=== PATIENT | female | born 1945 | race Caucasian/White ===

== ENCOUNTER 2019-01-14 02:05 | Emergency (ER) | payer OTHER, BC ==
[~2019-01-14] VITALS: Ht 167.6 cm; Wt 74.8 kg
[~2019-01-14 02:05] MED LIST: ATEN25TA2 GT; FERR325E14 GT; TYL3 GT; [UNRECOGNIZED DRUG - CODE] GT; [UNRECOGNIZED DRUG - CODE] GT; [UNRECOGNIZED DRUG - CODE] SUBQ; [UNRECOGNIZED DRUG - OTHER] GT; [UNRECOGNIZED DRUG - OTHER] GT
[2019-01-14 02:14] VITALS: BP 142/68
--- NOTE | 2019-01-14 02:14 | NUR ---
PT TO BED #10 BY SHREYAS SOL
--- NOTE | 2019-01-14 02:15 | NUR ---
74 Y/O F BIB AMBULANCE FROM [facility] S/P FALL.PATIENT PRESENTS TO ED WITH L EYEBROW HEMATOMA AND LAC TO ALIVIA, NO BLEEDING AT THIS. NO LOC. L ELBOW ABRASION. PT BASELINE IS NON-VERBAL D/T HX OF CVA. DENIES N/V/D; SKIN IS PINK/WARM/DRY; LUNGS CLEAR BL; HR EVEN AND REGULAR; VSS; PATIENT POSITIONED FOR COMFORT; HOB ELEVATED; BEDRAILS UP X2; BED DOWN. ER MD MADE AWARE OF PT STATUS.
--- NOTE | 2019-01-14 03:15 | NUR ---
PT WENT TO CT BY SHREYAS
--- NOTE | 2019-01-14 03:41 | NUR ---
PT IS BACK FROM CT. TRANSPORTED BY SHREYAS
--- NOTE | 2019-01-14 05:10 | NUR ---
REPORT GIVEN TO ANTWON DORSEY AT [facility]. [facility] TO TRANSPORT PT. ETA 60 MINS.
[2019-01-14 05:46] VITALS: BP 97/46
--- NOTE | 2019-01-14 05:47 | NUR ---
Patient discharged with v/s stable. Written and verbal after care instructions given and explained. Patient non-verbal. Report given to [facility]. Ambulance Transport with to long term. All questions addressed prior to discharge. Advised to follow up with PMD.
== END 2019-01-14 05:47 ==
LOC: MED 02:05
DX: S00.12XA Contusion of left eyelid and periocular area, initial encounter (principal); S40.812A Abrasion of left upper arm, initial encounter; E11.9 Type 2 diabetes mellitus without complications; I10 Essential (primary) hypertension; F03.90 Unspecified dementia, unspecified severity, without behavioral disturbance, psychotic disturbance, mood disturbance, and anxiety; Z79.899 Other long term (current) drug therapy; W19.XXXA Unspecified fall, initial encounter; Y93.89 Activity, other specified; Y92.89 Other specified places as the place of occurrence of the external cause; Y99.8 Other external cause status
CPT/HCPCS: 70450; 70486; 72125; 73060; 99284

== ENCOUNTER 2019-06-20 14:09 | Inpatient (IN) | payer OTHER, BC ==
[~2019-06-20] VITALS: Ht 172.7 cm; Wt 78.9 kg
[2019-06-20 14:09] VITALS: BP 177/87
[2019-06-20] MEDS ORDERED: PIPERACILLIN/TAZOBACTAM 3.375 GM in DEXTROSE 5% 50 ML IV ONE (14:25)
--- NOTE | 2019-06-20 14:42 | NUR ---
LAB AT BEDSIDE
--- NOTE | 2019-06-20 15:00 | NUR ---
Inserted 14 namibian Lindquist catheter with 200ml output.
[2019-06-20] MEDS ORDERED: PIPERACILLIN/TAZOBACTAM 3.375 GM VIAL IV ONE (15:02)
--- NOTE | 2019-06-20 15:10 | NUR ---
Note undnick in EDM - 06/20/19 at 1529 by RAEANN 74 y/o female bib ems for g-tube leak evaluation. Pt. is nonverbal and a/o x 1. 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 Skin is dry with red hyperpigmentation on left buttocks. Pmh: DM, Dementia, Gerd, dysphagia, Htn, hemiplegia, and hyperlipidemia. Allergies: NKDA
--- NOTE | 2019-06-20 15:10 | NUR ---
XRAY AT BEDSIDE
[2019-06-20 15:18] LABS: BASOPHILS # (AUTO) 0.1 K/uL (0.00-0.22); BASOPHILS % (AUTO) 0.7 % (0.0-2.0); EOSINOPHILS # (AUTO) 0.1 K/uL (0-0.4); EOSINOPHILS % (AUTO) 1.2 % (0.0-4.0); HEMATOCRIT 43.2 % (36-48); HEMOGLOBIN 14.8 g/dL (12.0-16.0); LYMPHOCYTES # (AUTO) 2.1 K/uL (2.5-16.5); LYMPHOCYTES % (AUTO) 24.4 % (20.5-51.1); MEAN CORPUSCULAR HEMOGLOBIN 32 pg (27-31); MEAN CORPUSCULAR HGB CONC 34 g/dL (33-37); MEAN CORPUSCULAR VOLUME 93.2 fL (80-94); MONOCYTES # (AUTO) 0.6 K/uL (0.8-1.0); NEUTROPHILS # (AUTO) 5.6 K/uL (1.8-7.7); NEUTROPHILS % (AUTO) 66.7 % (42.2-75.2); PLATELET COUNT (AUTO) 257 K/uL (140-450); RED BLOOD CELL COUNT(AUTO) 4.63 MIL/uL (4.20-5.40); RED CELL DISTRIBUTION WIDTH 13.7 % (11.6-13.7); WHITE BLOOD COUNT (AUTO) 8.4 K/uL (4.8-10.8)
[2019-06-20 15:21] LABS: BILIRUBIN,URINE NEGATIVE (NEGATIVE); BLOOD, URINE 2+ (NEGATIVE); COLOR,URINE YELLOW (YELLOW); LEUKOCYTE ESTERASE ,URINE 3+ (NEGATIVE); NITRITE, URINE NEGATIVE (NEGATIVE); UGLUCOSE NEGATIVE (NEGATIVE)
[2019-06-20 15:24] LABS: APPEARANCE,URINE CLOUDY (CLEAR)
[2019-06-20] MEDS ORDERED: NACL 0.9% 1,000 ML IV ONE ×2 (15:25)
--- NOTE | 2019-06-20 15:29 | NUR ---
74 y/o female bib ems for g-tube leak evaluation. Pt. is nonverbal and a/o x 1. 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 Skin is dry with red hyperpigmentation on left buttocks. Pt. is incontinent of urine. Pmh: DM, Dementia, Gerd, dysphagia, Htn, hemiplegia, and hyperlipidemia. Allergies: NKDA
[2019-06-20 15:54] LABS: ANION GAP 10.3 (8-16); CHLORIDE 100 mmol/L (98-107); CREATININE 0.5 mg/dL (0.6-1.3); GLUCOSE 111 mg/dL (74-106); POTASSIUM 4.3 mmol/L (3.5-5.1); SODIUM SERUM 136 mmol/L (136-145); UREA NITROGEN, BLOOD 16 mg/dL (7-18)
[2019-06-20 15:55] LABS: RBC,URINE 50-80 /HPF (0-5); WBC,URINE 0-5 /HPF (0-5)
[2019-06-20 16:01] LABS: ALBUMIN 3.3 g/dL (3.4-5.0); ASPARTATE AMINOTRANSFERASE 17 U/L (15-37); LIPASE 118 U/L (73-393); TOTAL BILIRUBIN 0.6 mg/dL (0.0-1.0)
[2019-06-20 16:13] LABS: PROTHROMBIN TIME 9.3 secs (10.8-13.4)
[2019-06-20 16:31] LABS: CREATINE KINASE MB 1.9 ng/mL (0-3.6)
[2019-06-20] MEDS ORDERED: ACETAMINOPHEN 650 MG SUPP RC ONE (17:00)
[2019-06-20] MEDS ORDERED: DOCU250S72 GT ×2 (17:02→21:25)
[2019-06-20] MEDS ORDERED: NUTR-396 GT ×2 (17:02→21:25)
[2019-06-20] MEDS ORDERED: FAMO-90 PO (17:02)
[2019-06-20] MEDS ORDERED: ACET-2619 GT ×2 (17:02→21:22)
[2019-06-20] MEDS ORDERED: ASCO500T45 GT ×2 (17:02→21:22)
[2019-06-20] MEDS ORDERED: METO25TA GT ×3 (17:02→21:25)
[2019-06-20] MEDS ORDERED: LACT500C2 GT ×2 (17:02→21:25)
[2019-06-20] MEDS ORDERED: CRAN450C GT ×2 (17:02→21:25)
[2019-06-20] MEDS ORDERED: [UNRECOGNIZED DRUG - CODE] GT ×2 (17:02→21:25)
[2019-06-20] MEDS ORDERED: LACT10SO11 GT ×2 (17:02→21:25)
[2019-06-20] MEDS ORDERED: NACL 0.9% 500 ML IV ONE (17:30)
--- NOTE | 2019-06-20 17:30 | NUR ---
SPOKE WITH KAIN KAPOOR AT [facility] AND OBTAINED MORE INFORMATION ABOUT PATIENT'S HEART RATE. PER FACILITY, PATIENT THIS MORNING HAD A NORMAL VITAL OF HEART RATE 72. DR. RAO MADE AWARE.
[2019-06-20] MEDS ORDERED: MORPHINE SULFATE 2 MG/ML SYR IVP PRN (17:35)
[2019-06-20] MEDS ORDERED: ACETAMINOPHEN 325 MG TAB PO PRN (17:35)
[2019-06-20] MEDS ORDERED: DOCUSATE SODIUM 100 MG GELCAP PO PRN (17:35)
[2019-06-20] MEDS ORDERED: HYDROcodone/APAP 5/325 MG 1 TAB TAB PO PRN (17:35)
[2019-06-20] MEDS ORDERED: ZOLPIDEM 5 MG TAB PO PRN (17:35)
[2019-06-20] MEDS ORDERED: ONDANSETRON 4 MG/2 ML VIAL IM/IVP PRN (17:35)
[2019-06-20] MEDS ORDERED: LORazepam 2 MG/ML VIAL IM/IVP PRN (17:35)
--- NOTE | 2019-06-20 17:45 | NUR ---
SPOKE WITH KAIN KAPOOR AT [facility] AND I ADVISED HER THAT PATIENT WOULD BE ADMITTED TO HOSPITAL OVERNIGHT.
--- NOTE | 2019-06-20 17:55 | NUR ---
Contrast injected into g-tube for placement by myself. X-Ray at bedside.
[2019-06-20] MEDS ORDERED: DOCUSATE SODIUM 100 MG GELCAP PO SCH (17:56)
[2019-06-20] MEDS ORDERED: LACTOBACILLUS RHAMNOSUS GG 1 EACH CAP PO SCH (17:58)
[2019-06-20 18:20] LABS: MAGNESIUM 2.3 mg/dL (1.8-2.4); PHOSPHORUS 3.3 mg/dL (2.5-4.9); THYROID STIMULATING HORMONE 2.27 uIU/mL (0.34-3.74)
[2019-06-20 18:32] VITALS: BP 153/81
--- NOTE | 2019-06-20 18:32 | NUR ---
RECEIVED REPORT FROM ED NURSE. PT IS AOX1, NONVERBAL. RESPIRATIONS EVEN AND UNLABORED ON RA. PT HAS GTUBE IN PLACE, NO RESIDUALS AT THIS TIME. F/C IN PLACE DRAINING YELLOW URINE, DX UTI. 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 SKIN IS WARM TO TOUCH. FOOT DROP NOTED. IV ON LT HAND 20 GA ON SALINE LOCK, FLUSHING WITH NO RESISTANCE, DRESSING CLEAN, DRY AND INTACT. EXPLAINED POC WITH PT, PT UNABLE TO COMPREHEND, WILL NEED REINFORCEMENT.
--- NOTE | 2019-06-20 18:40 | NUR ---
Maryann sosa in ED - 06/20/19 at 1841 by RAEANN Patient will be admitted to care of DR. TOLEDO. Admited to TELE. Will go to room 121 B. Belongings list completed. Report to .
--- NOTE | 2019-06-20 18:41 | NUR ---
Patient will be admitted to care of DR. TOLEDO. Admited to TELE. Will go to room 121 b. Belongings list completed. Report to SOL KAPOOR .
--- NOTE | 2019-06-20 19:10 | NUR ---
ENDORSED PT TO MANAGER PET NURSE. PT HAS NO SIGNS OF DISTRESS AT THIS TIME.
--- NOTE | 2019-06-20 19:11 | NUR ---
RECEIVED REPORT FROM AM NURSE. PT AWAKE, ALERT AND ORIENTED TO NAME ONLY. PT IS NON-VERBAL. VISIBLE CHEST RISE AND FALL ON ROOM AIR, NO DISTRESS NOTED. PT UNABLE TO FOLLOW COMMANDS. HANDS ARE CONTRACTED AND BILATERAL FOOT DROP NOTED. NOTED INCONTINENT DERMATITIS IN PERINEAL AREA. ANSARI IN PLACE. LEFT HAND 20G INTACT AND PATENT WITH SALINE FLUSH. ON FALL PRECAUTIONS, BED ALARM ON. CALL LIGHT WITHIN REACH. WILL MONITOR WITH FREQUENT ROUNDS.
[2019-06-20 20:00] VITALS: BP 164/68
--- NOTE | 2019-06-20 20:00 | NUR ---
INFORMED RESIDENT DR. GONZALEZ OF PT VITAL SIGNS. PER MD, CONTINUE HOME MEDS AND CONTINUE TO MONITOR.
[2019-06-20] MEDS ORDERED: ACETAMINOPHEN 325 MG TAB GT PRN ×2 (20:45→21:25)
[2019-06-20] MEDS ORDERED: FAMO-90 GT ×2 (20:47→21:25)
[2019-06-20] MEDS ORDERED: DOCUSATE 100 MG/10 ML UDC GT SCH (20:50)
[2019-06-20] MEDS ORDERED: METOPROLOL 25 MG TAB GT SCH (21:00)
[2019-06-20] MEDS ORDERED: FAMOTIDINE 20 MG TAB GT SCH (21:00)
[2019-06-20] MEDS ORDERED: SODIUM PHOSPHATE 118 ML ENEM RC ONE ×2 (21:05→21:30)
--- NOTE | 2019-06-20 21:06 | NUR ---
FLEET ENEMA ADMINISTERED. PT TOLERATED WELL.
[2019-06-20] MEDS ORDERED: MEDICATION REC. PHARMACY CONS. 1 EA MISC MC PRN (21:15)
[2019-06-20] MEDS ORDERED: GLUCAGON 1 MG VIAL IVP PRN (21:40)
[2019-06-20] MEDS ORDERED: INSULIN LISPRO SLIDING SCALE 100 UNITS/ML VIAL SUBQ PRN (21:40)
[2019-06-20] MEDS ORDERED: DEXTROSE 50% 50 ML SYR IVP PRN (21:40)
[2019-06-20] MEDS: NACL 0.9% 1,000 ML IV SCH (22:06)
[2019-06-20] MEDS: PIPERACILLIN/TAZOBACTAM 3.375 GM in DEXTROSE 5% 50 ML IV SCH (22:06)
[2019-06-20] MEDS: METOPROLOL 25 MG TAB GT SCH (22:07)
--- NOTE | 2019-06-20 22:07 | NUR ---
MEDICATION ADMINISTERED VIA G-TUBE. G-TUBE PATENT W/O ISSUES.
[2019-06-20] MEDS: DOCUSATE 100 MG/10 ML UDC GT SCH (22:59)
--- NOTE | 2019-06-21 00:15 | NUR ---
VITALS TAKEN. PT HAD SMALL BM. PT CLEANED AND REPOSITIONED FOR COMFORT. WOUND CARE PERFORMED FOR INCONTINENT DERMATITIS.
[2019-06-21 00:30] VITALS: BP 115/59
[2019-06-21] MEDS: HYDRAGUARD CREAM TP SCH ×2 (01:00→12:30)
--- NOTE | 2019-06-21 02:30 | NUR ---
ROUNDED ON PT. PT RESTING IN BED WITH EYES CLOSE. BREATHING EQUAL AND UNLABORED ON ROOM AIR. NO VISIBLE SIGNS OF DISTRESS. WILL CONTINUE TO MONITOR.
[2019-06-21] MEDS: NACL 0.9% 1,000 ML IV SCH ×2 (03:38→12:34)
[2019-06-21 04:00] VITALS: BP 146/65
--- NOTE | 2019-06-21 04:00 | NUR ---
VITALS TAKEN. PT HAD ANOTHER SMALL BOWEL MOVEMENT. PT CLEANED AND REPOSITIONED FOR COMFORT.
[2019-06-21] MEDS: PIPERACILLIN/TAZOBACTAM 3.375 GM in DEXTROSE 5% 50 ML IV SCH ×3 (04:24→21:40)
--- NOTE | 2019-06-21 06:00 | NUR ---
TUBE FEEDING STARTED JEVITY 1.2 AT 10ML/HR. PT TOLERATED WELL. PT RESTING WITH EYES CLOSED BUT IS AWAKEN BY VOICE. VISIBLE CHEST RISE AND FALL ON ROOM AIR. NO DISTRESS NOTED. PT IN STABLE CONDITION. WILL ENDORSE TO AM NURSE.
[2019-06-21 06:31] LABS: ANION GAP 11.1 (8-16); CARBON DIOXIDE 26.7 mmol/L (21-32); CHLORIDE 108 mmol/L (98-107); CREATININE 0.5 mg/dL (0.6-1.3); GLUCOSE 111 mg/dL (74-106); POTASSIUM 3.8 mmol/L (3.5-5.1); SODIUM SERUM 142 mmol/L (136-145); UREA NITROGEN, BLOOD 12 mg/dL (7-18)
[2019-06-21 06:39] LABS: CHOL/HDL RATIO 3.2 (1-4.5); PHOSPHORUS 2.7 mg/dL (2.5-4.9)
[2019-06-21] MEDS: BLOOD GLUCOSE MONITORING 1 DEV DEV FS SCH ×4 (06:51→21:35)
[2019-06-21 06:54] LABS: BASOPHILS % (AUTO) 0.4 % (0.0-2.0); EOSINOPHILS % (AUTO) 0.4 % (0.0-4.0); HEMATOCRIT 39.1 % (36-48); HEMOGLOBIN 13.1 g/dL (12.0-16.0); LYMPHOCYTES % (AUTO) 14.9 % (20.5-51.1); MEAN CORPUSCULAR HEMOGLOBIN 32 pg (27-31); MEAN CORPUSCULAR HGB CONC 34 g/dL (33-37); MEAN CORPUSCULAR VOLUME 94.9 fL (80-94); MONOCYTES # (AUTO) 0.6 K/uL (0.8-1.0); MONOCYTES % (AUTO) 8.4 % (1.7-9.3); NEUTROPHILS # (AUTO) 5.2 K/uL (1.8-7.7); NEUTROPHILS % (AUTO) 75.9 % (42.2-75.2); PLATELET COUNT (AUTO) 202 K/uL (140-450); RED BLOOD CELL COUNT(AUTO) 4.12 MIL/uL (4.20-5.40); RED CELL DISTRIBUTION WIDTH 13.7 % (11.6-13.7); WHITE BLOOD COUNT (AUTO) 6.8 K/uL (4.8-10.8)
--- NOTE | 2019-06-21 07:16 | NUR ---
RECEIVED REPORT FROM ROBBY RN. PT RESTING IN BED. AAOX4. NO S/S OF ACUTE DISTRESS. FLACC-0. IV SITE PATENT AND INTACT. ANSARI CATHETER PATENT. GTUBE PATENT. CALL LIGHT WITHIN REACH. SAFETY MEASURES ENSURED. WILL CONTINUE TO MONITOR.
[2019-06-21 08:00] VITALS: BP 127/63
--- NOTE | 2019-06-21 08:35 | NUR ---
PATIENT HAS BEEN SCREENED AND CATEGORIZED HIGH NUTRITION RISK. PATIENT WILL BE SEEN WITHIN 1-2 DAYS OF ADMISSION. 06/21/19-06/22/[address]
[2019-06-21] MEDS ORDERED: NON-FORMULARY ITEM (Cranberry Fruit Concentrate (Cranberry) 450 MG) GT SCH ×2 (09:00)
[2019-06-21] MEDS ORDERED: FIBER GT SCH (09:00)
[2019-06-21] MEDS ORDERED: [UNRECOGNIZED DRUG - OTHER] GT SCH (09:00)
[2019-06-21] MEDS ORDERED: NON-FORMULARY ITEM (Multivit with Min #53/FA/K/Q10 (Dekas Plus Softgel) 1 EACH) GT SCH (09:00)
[2019-06-21] MEDS ORDERED: LACTULOSE 20 GM/30 ML UDC GT SCH (09:00)
[2019-06-21] MEDS ORDERED: LACTOBACILLUS RHAMNOSUS GG 1 EACH CAP PO SCH ×2 (09:00)
[2019-06-21] MEDS ORDERED: LACTOSE REDUCED FOOD GT SCH (09:00)
[2019-06-21] MEDS ORDERED: ASCORBIC ACID 500 MG TAB GT SCH (09:00)
[2019-06-21] MEDS: METOPROLOL 25 MG TAB GT SCH ×2 (09:35→21:38)
[2019-06-21] MEDS: CALCIUM POLYCARBOPHIL 625 MG TAB GT SCH (09:36)
[2019-06-21] MEDS: ASCORBIC ACID 500 MG TAB GT SCH (09:36)
[2019-06-21] MEDS: FAMOTIDINE 20 MG TAB GT SCH ×2 (09:36→21:38)
[2019-06-21] MEDS: LACTULOSE 20 GM/30 ML UDC GT SCH (09:36)
[2019-06-21] MEDS: LACTOBACILLUS RHAMNOSUS GG 1 EACH CAP GT SCH ×2 (09:36→21:38)
[2019-06-21] MEDS: DOCUSATE 100 MG/10 ML UDC GT SCH ×2 (09:36→21:37)
[2019-06-21] MEDS: MULTIVITAMIN/MINERALS 15 ML UDBTL GT SCH (09:37)
--- NOTE | 2019-06-21 10:00 | NUR ---
PT RESTING IN BED. NO S/S OF ACUTE DISTRESS. FLACC-0. 0 RESIDUAL FROM GTUBE. FEEDING INCREASED TO 20 ML/HR ORDERED. WILL CONTINUE TO MONITOR.
[2019-06-21 11:11] VITALS: BP 108/56
--- NOTE | 2019-06-21 11:25 | NUR ---
Claim Service Representative Note: Per Ivelisse from [facility] , they can accept patient upon discharge. 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 Claim Service Representative and/or Engine Repairer will follow up as needed.
[2019-06-21 12:07] LABS: T4 (THYROXINE) 10.6 ug/dL (4.5-12.0)
--- NOTE | 2019-06-21 13:23 | NUR ---
06/21/19 RD INITIAL ASSESSMENT COMPLETED PLEASE REFER TO NUTRITION ASSESSMENT UNDER CARE ACTIVITY FOR ESTIMATED NUTRITIONAL NEEDS. 1. RECOMMEND PROSOURCE ONCE DAILY 2. CONTINUE JEVITY @ 65 ML/HR x 24 HR -THIS WILL PROVIDE 1560 ML OF VOLUME, 1872 KCAL, 86 GM OF PROTEIN WHICH MEETS 100% OF ESTIMATED NEEDS 3. RD TO FOLLOW-UP 2-3 DAYS, HIGH RISK EZIO BULLOCK, RD
--- NOTE | 2019-06-21 14:00 | NUR ---
INCREASED FEEDING TO 30ML/HR. PT TOLERATED WELL.
[2019-06-21 16:00] VITALS: BP 110/63
--- NOTE | 2019-06-21 19:04 | NUR ---
LAB CALLED TO REPORT SPUTUM WAS REJECTED FOR CULTURE.
--- NOTE | 2019-06-21 19:05 | NUR ---
RECEIVED REPORT FROM AM NURSE. PT LAYING AWAKE IN BED, NON-VERBAL. PT DOES NOT FOLLOW COMMANDS. VISIBLE CHEST RISE AND FALL ON ROOM AIR, NO DISTRESS NOTED, FLACC 0. LEFT HAND 20G INTACT AND INFUSING WELL. ON FALL PRECAUTIONS, BED IN LOW POSITION, BED ALARM ON. WILL CONTINUE TO MONITOR.
[2019-06-21 20:00] VITALS: BP 150/61
--- NOTE | 2019-06-21 20:45 | NUR ---
G-TUBE RESIDUALS CHECKED, 5ML. INCREASED TUBE FEEDING BY 10ML/HR FOR A TOTAL OF 40ML/HR.
--- NOTE | 2019-06-21 21:35 | NUR ---
BLOOD GLUCOSE 72 AT THIS TIME, NO COVERAGE NEEDED. CHECKED G-TUBE RESIDUALS, 0ML. ADMINISTERED MEDICATION VIA G-TUBE. PT TOLERATED WELL.
[2019-06-22 00:20] VITALS: BP 122/49
--- NOTE | 2019-06-22 00:20 | NUR ---
VITALS TAKEN. PT SLEEPING, BREATHING EQUAL AND UNLABORED ON ROOM AIR. CHECKED G-TUBE RESIDUALS, 20CC NOTED. INCREASED G-TUBE FEEDING 10ML/H FOR A TOTAL OF 50ML/HR.
[2019-06-22] MEDS: HYDRAGUARD CREAM TP SCH ×2 (01:00→13:12)
[2019-06-22] MEDS: NACL 0.9% 1,000 ML IV SCH ×2 (03:34→17:17)
[2019-06-22 04:00] VITALS: BP 121/58
--- NOTE | 2019-06-22 04:00 | NUR ---
VITALS TAKEN. PT SLEEPING BUT OPENS EYES UPON TOUCH. BREATHING EQUAL AND UNLABORED. NO VISIBLE SIGNS OF DISTRESS.
[2019-06-22] MEDS: PIPERACILLIN/TAZOBACTAM 3.375 GM in DEXTROSE 5% 50 ML IV SCH ×3 (05:16→21:18)
--- NOTE | 2019-06-22 05:56 | NUR ---
CHECKED RESIDUALS, 0CC NOTED. CHANGED TUBE FEEDING, JEVITY 1.2, AND TUBING FOR FEEDING. ADMINISTERED ONE PACKET OF PROSOURCE VIA G-TUBE. PT TOLERATED WELL. RESTARTED TUBE FEEDING.
[2019-06-22 06:25] LABS: BASOPHILS % (AUTO) 0.7 % (0.0-2.0); EOSINOPHILS # (AUTO) 0.1 K/uL (0-0.4); EOSINOPHILS % (AUTO) 2.3 % (0.0-4.0); HEMATOCRIT 35.7 % (36-48); HEMOGLOBIN 11.9 g/dL (12.0-16.0); LYMPHOCYTES # (AUTO) 1.3 K/uL (2.5-16.5); LYMPHOCYTES % (AUTO) 27.1 % (20.5-51.1); MEAN CORPUSCULAR HEMOGLOBIN 32 pg (27-31); MEAN CORPUSCULAR HGB CONC 33 g/dL (33-37); MEAN CORPUSCULAR VOLUME 95.1 fL (80-94); MONOCYTES # (AUTO) 0.5 K/uL (0.8-1.0); MONOCYTES % (AUTO) 10.8 % (1.7-9.3); NEUTROPHILS # (AUTO) 2.9 K/uL (1.8-7.7); NEUTROPHILS % (AUTO) 59.1 % (42.2-75.2); PLATELET COUNT (AUTO) 165 K/uL (140-450); RED BLOOD CELL COUNT(AUTO) 3.75 MIL/uL (4.20-5.40); RED CELL DISTRIBUTION WIDTH 13.9 % (11.6-13.7)
[2019-06-22] MEDS: BLOOD GLUCOSE MONITORING 1 DEV DEV FS SCH ×4 (06:32→21:16)
[2019-06-22 06:34] LABS: ANION GAP 9.9 (8-16); CARBON DIOXIDE 26.6 mmol/L (21-32); CHLORIDE 108 mmol/L (98-107); CREATININE 0.4 mg/dL (0.6-1.3); GLUCOSE 121 mg/dL (74-106); POTASSIUM 3.5 mmol/L (3.5-5.1); SODIUM SERUM 141 mmol/L (136-145); UREA NITROGEN, BLOOD 9 mg/dL (7-18)
[2019-06-22 06:39] LABS: PHOSPHORUS 2.4 mg/dL (2.5-4.9)
--- NOTE | 2019-06-22 06:45 | NUR ---
IV D/C DUE TO OCCLUSION. NEW IV STARTED IN RIGHT HAND 24G.
--- NOTE | 2019-06-22 07:25 | NUR ---
RECEIVED REPORT FROM STEAM FITTER NURSE. PATIENT LYING DOWN IN BED SLEEPING, AROUSABLE BY VOICE. NO DISTRESS NOTED. FLACC 0. AAOX1, NON-VERBAL, CALM, COOPERATIVE, SKIN COLOR APPROPRIATE TO ETHNICITY, WARM TO TOUCH. SKIN INTACT, HAS REDNESS ON PERINEAL AREA D/T IAD. IV SITE INTACT, PATENT, AND INFUSING IVF PER MD ORDERS. LUNGS CTA ON ALL LOBES. ANSARI CATHETER IN PLACE, DRAINING CLOUDY YELLOW URINE. GTUBE IN PLACE, CONTINUOUS FEEDING RUNNING PER MD ORDERS. REVIEWED PLAN OF CARE WITH PATIENT. PATIENT VERBALIZED UNDERSTANDING. SAFETY MEASURES IN PLACE, CALL LIGHT WITHIN REACH. WILL CONTINUE TO MONITOR.
[2019-06-22 08:00] VITALS: BP 145/66
--- NOTE | 2019-06-22 09:00 | NUR ---
ASSISTED LEGAL RECRUITER IN CLEANING AND REPOSITIONING PATIENT. WILL CONTINUE TO MONITOR.
[2019-06-22] MEDS: DOCUSATE 100 MG/10 ML UDC GT SCH ×2 (10:02→21:17)
[2019-06-22] MEDS: LACTULOSE 20 GM/30 ML UDC GT SCH (10:02)
[2019-06-22] MEDS: ASCORBIC ACID 500 MG TAB GT SCH (10:08)
[2019-06-22] MEDS: METOPROLOL 25 MG TAB GT SCH ×2 (10:08→21:18)
[2019-06-22] MEDS: CALCIUM POLYCARBOPHIL 625 MG TAB GT SCH (10:09)
[2019-06-22] MEDS: FAMOTIDINE 20 MG TAB GT SCH ×2 (10:09→21:17)
[2019-06-22] MEDS: MULTIVITAMIN/MINERALS 15 ML UDBTL GT SCH (10:09)
--- NOTE | 2019-06-22 10:28 | NUR ---
PATIENT LYING DOWN IN BED. NO DISTRESS NOTED. FLACC 0. SCHEDULED MEDICATIONS DUE GIVEN. PATIENT TOLERATED WELL. WILL CONTINUE TO MONITOR.
[2019-06-22 12:00] VITALS: BP 121/68
[2019-06-22] MEDS ORDERED: SODIUM PHOS / POTASSIUM PHOS 1 PKT PDR PO SCH (12:00)
--- NOTE | 2019-06-22 13:02 | NUR ---
WOUND CARE EVALUATION NOTES: REASON FOR EVALUATION: BUTTOCK AND SACRALCOCCYX WOUND SKIN ASSESSMENT DONE WITH PRIMARY RN ON THIS 74 Y/O FEMALE PT ADMITTED FROM [facility] TO [facility] WITH INITIAL DX OF SEPSIS. PAST MEDICAL HX INCLUDES HTN, DM, AND DEMENTIA. ALL ABOVE INFORMATION OBTAINED FROM ADMISSION H&P. PT IS AWAKE. SKIN IS WARM AND MOIST, FACIAL PIMPLES TO CHIN AND NECK AREA, SKIN RASHES/ PSORIASIS TO TRUNK OF BODY. BLE NO HAIR GROWTH, BILATERAL DORSAL PEDAL PULSES PRESENT AND NORMAL. BUE CONTRACTURE, FOOT DROP AND STIFFNESS TO BLE OBSERVED. PLAN OF CARE DISCUSSED WITH PRIMARY RN AND PT. PT. VERBALIZING UNDERSTANDING INTEGUMENTARY: -LEFT BUTTOCK AND SACRALCOCCYX SKIN INTACT WITH THIN HEALED SCARS, NON BLANCHABLE. -INCONTINENT ASSOCIATE DERMATITIS TO B/L GROINS, PERINEUM AND B/L BUTTOCKS SKIN REDNESS -GT SITE LUC-STOMA SKIN DRY AND INTACT -BLE DRY SCALY SKIN, RIGHT LOWER LEDBETTER 2X2CM DRY HEALING SCAR WITH PERIWOUND SKIN REDNESS AND INTACT -LEFT / RIGHT HEELS THICK CALLUS RECOMMENDATIONS: -CLEANSE B/L GROINS, PERINEUM AND B/L BUTTOCKS WITH SOAP AND WATER, PAT DRY, APPLY THIN LAYER OF HYDRAGUARD BID AND HERB -APPLY OPTICFOAM TO SACRALCOCCYX AND LEFT BUTTOCK QD AND PRN PREVENTION -KEEP DRY AND CLEAN AT ALL TIMES -OFFLOAD BILATERAL HEELS BY PLACING PILLOWS UNDER CALVES UNLESS OTHERWISE CONTRAINDICATED -PRESSURE REDISTRIBUTION SURFACE THERAPY -TURN AND REPOSITION Q2H, OFFLOAD SACRALCOCCYX BY TURNING RIGHT AND LEFT -CONTINUE TO FOLLOW RD RECOMMENDATIONS ALL ABOVE RECOMMENDATIONS DISCUSSED WITH PRIMARY RN PLEASE CONTACT WOUND CARE NURSE FOR ANY QUESTIONS AND CHANGES IN SKIN CONDITION.
[2019-06-22] MEDS: SODIUM PHOS / POTASSIUM PHOS 1 PKT PDR PO SCH ×2 (13:08→17:17)
--- NOTE | 2019-06-22 13:17 | NUR ---
PATIENT LYING DOWN IN BED SLEEPING, AROUSABLE BY VOICE. NO DISTRESS NOTED. FLACC 0. SCHEDULED MEDICATIONS DUE GIVEN. WILL CONTINUE TO MONITOR.
--- NOTE | 2019-06-22 15:00 | NUR ---
PATIENT LYING DOWN IN BED COMFORTABLY. NO DISTRESS NOTED. FLACC 0. FAMILY AT BEDSIDE. WILL CONTINUE TO MONITOR.
[2019-06-22 16:00] VITALS: BP 150/64
--- NOTE | 2019-06-22 17:22 | NUR ---
SCHEDULED MEDICATIONS DUE GIVEN. CONDITION UNCHANGED. WILL CONTINUE TO MONITOR.
--- NOTE | 2019-06-22 19:19 | NUR ---
GAVE REPORT TO BLIND STITCH MACHINE OPERATOR NURSE FOR CONTINUITY OF CARE. PATIENT IN STABLE CONDITION.
--- NOTE | 2019-06-22 19:30 | NUR ---
ASSUMED CARE OF PATIENT, AWAKE. NO DISTRESS. STABLE CONDITION. CALL LIGHT WITHIN REACH.
[2019-06-22 20:00] VITALS: BP 148/61
--- NOTE | 2019-06-22 20:00 | NUR ---
REPOSITIONED Addendum: 06/22/19 at 2258 by Preeti Wills RN REPOSITIONED BY KEY. HOB ELEVATED AT ALL TIME. GT FEEDING ONGOING, WELL TOLERATED. CARE BOARD UPDATED. CALL LIGHT WITHIN REACH.
--- NOTE | 2019-06-22 21:15 | NUR ---
DUE MEDS GIVEN. MINIMAL GT RESIDUAL NOTED. TOLERATED WELL. CALL LIGHT WITHIN REACH.
--- NOTE | 2019-06-22 22:00 | NUR ---
APPLICATION PERFORMANCE ENGINEER AT BEDSIDE, REPOSITIONED PATIENT AND PERICARE DONE.
[2019-06-23 00:21] VITALS: BP 119/47
--- NOTE | 2019-06-23 00:24 | NUR ---
SEMIFOWLERS REPOSITIONED. GT FEEDING WELL. TOLERATED. VITAL SIGNS STABLE. AFEBRILE. GT TUBE AND FEEDING SYSTEM CHANGED. CALL LIGHT WITHIN REACH.
[2019-06-23] MEDS: HYDRAGUARD CREAM TP SCH ×2 (00:34→13:24)
[2019-06-23 03:43] VITALS: BP 117/54
--- NOTE | 2019-06-23 03:45 | NUR ---
VITAL SIGNS STABLE. AFEBRILE. HOB ELEVATED AT ALL TIME. CALL LIGHT WITHIN REACH. GT FEEDING INFUSING WELL.
[2019-06-23] MEDS: PIPERACILLIN/TAZOBACTAM 3.375 GM in DEXTROSE 5% 50 ML IV SCH (04:03)
[2019-06-23] MEDS: BLOOD GLUCOSE MONITORING 1 DEV DEV FS SCH ×4 (06:05→20:13)
--- NOTE | 2019-06-23 06:16 | NUR ---
PATIENT, AWAKE. BS-117, MINIMAL GT RESIDUAL NOTED. REPOSITIONED. CALL LIGHT WITHIN REACH.
[2019-06-23 06:45] LABS: BASOPHILS % (AUTO) 0.6 % (0.0-2.0); EOSINOPHILS # (AUTO) 0.2 K/uL (0-0.4); EOSINOPHILS % (AUTO) 3.1 % (0.0-4.0); HEMATOCRIT 38.8 % (36-48); HEMOGLOBIN 13.1 g/dL (12.0-16.0); LYMPHOCYTES # (AUTO) 1.1 K/uL (2.5-16.5); LYMPHOCYTES % (AUTO) 17.8 % (20.5-51.1); MEAN CORPUSCULAR HEMOGLOBIN 32 pg (27-31); MEAN CORPUSCULAR HGB CONC 34 g/dL (33-37); MEAN CORPUSCULAR VOLUME 94.5 fL (80-94); MONOCYTES # (AUTO) 0.5 K/uL (0.8-1.0); MONOCYTES % (AUTO) 7.9 % (1.7-9.3); NEUTROPHILS # (AUTO) 4.4 K/uL (1.8-7.7); NEUTROPHILS % (AUTO) 70.6 % (42.2-75.2); PLATELET COUNT (AUTO) 184 K/uL (140-450); RED BLOOD CELL COUNT(AUTO) 4.11 MIL/uL (4.20-5.40); RED CELL DISTRIBUTION WIDTH 13.5 % (11.6-13.7); WHITE BLOOD COUNT (AUTO) 6.2 K/uL (4.8-10.8)
--- NOTE | 2019-06-23 07:22 | NUR ---
ENDORSED CARE AT BEDSIDE WITH SEAN KAPOOR, PATIENT IN STABLE CONDITION.
--- NOTE | 2019-06-23 07:23 | NUR ---
Pt received from night nurse, ANTWON Álvarez. Pt in bed with at bedside. Pt AAOx0 and nonverbal. 24 g Iv to R hand infusing NS at 50ml/hr. G-tube tubing not kinked and site free of drainage. Pt does not display signs of acute distress. Will continue to monitor for changed in condition.
[2019-06-23 08:00] VITALS: BP 130/70
[2019-06-23 08:09] LABS: ANION GAP 10.6 (8-16); CARBON DIOXIDE 27.2 mmol/L (21-32); CHLORIDE 105 mmol/L (98-107); CREATININE 0.5 mg/dL (0.6-1.3); GLUCOSE 141 mg/dL (74-106); POTASSIUM 3.8 mmol/L (3.5-5.1); SODIUM SERUM 139 mmol/L (136-145); UREA NITROGEN, BLOOD 10 mg/dL (7-18)
[2019-06-23 08:14] LABS: PHOSPHORUS 2.7 mg/dL (2.5-4.9)
--- NOTE | 2019-06-23 09:15 | NUR ---
Pt receiving daily bathing, skin care, linen change, and gown change by KEY Lay. Will return after ADLs complete to administer morning meds and check g-tube residuals.
[2019-06-23] MEDS: SODIUM PHOS / POTASSIUM PHOS 1 PKT PDR PO SCH (09:42)
[2019-06-23] MEDS: FAMOTIDINE 20 MG TAB GT SCH ×2 (09:42→20:12)
[2019-06-23] MEDS: LACTULOSE 20 GM/30 ML UDC GT SCH (09:42)
[2019-06-23] MEDS: ASCORBIC ACID 500 MG TAB GT SCH (09:42)
[2019-06-23] MEDS: DOCUSATE 100 MG/10 ML UDC GT SCH ×2 (09:42→20:20)
[2019-06-23] MEDS: METOPROLOL 25 MG TAB GT SCH ×2 (09:42→20:12)
[2019-06-23] MEDS: CALCIUM POLYCARBOPHIL 625 MG TAB GT SCH (09:43)
[2019-06-23] MEDS: LACTOBACILLUS RHAMNOSUS GG 1 EACH CAP GT SCH (09:43)
[2019-06-23] MEDS: MULTIVITAMIN/MINERALS 15 ML UDBTL GT SCH (09:43)
[2019-06-23 12:00] VITALS: BP 129/60
--- NOTE | 2019-06-23 12:15 | NUR ---
Pt sleeping in bed. No signs of acute distress at this time. Will continue to reassess for changes in condition.
--- NOTE | 2019-06-23 14:32 | NUR ---
06/23/19 RD FOLLOW UP COMPLETED PLEASE REFER TO NUTRITION ASSESSMENT UNDER CARE ACTIVITY FOR ESTIMATED NUTRITIONAL NEEDS. 1.CONTINUE JEVITY @ 65 ML/HR x 24 HR WITH PROSOURCE QD -THIS WILL PROVIDE 1560 ML OF VOLUME, 1932 KCAL, 101 GM OF PROTEIN WHICH MEETS 100% OF ESTIMATED NEEDS 2. CONTINUE FREE WATER FLUSH OF [address] TO FOLLOW-UP 2-3 DAYS, HIGH RISK EZIO BULLOCK RD
--- NOTE | 2019-06-23 14:45 | NUR ---
Pt sleeping in bed. No signs of acute distress observed at this time. Pt IV NS bag replaced with new bag. Pt IV infusing with no signs of infection, infiltration, or phlebitis. Will continue to monitor for changes in condition.
--- NOTE | 2019-06-23 15:06 | NUR ---
LATE ENTRY: ALL CLINICALS FAXED TO [facility] [phone].
[2019-06-23] MEDS: NACL 0.9% 1,000 ML IV SCH (15:13)
[2019-06-23 16:00] VITALS: BP 131/63
--- NOTE | 2019-06-23 17:59 | NUR ---
Tylenol given for temporal temp = 100.8�F. Cool wet washcloth applied to forehead & ice packs applied to bilat axillary. [place] removed & room temp kept cool. Pt in no distress, respirations even & nonlabored, no coughing noted. Lindquist cath in place & draining clear yellow urine with few white sediments. Right hand IV intact with ongoing NS @ 50ml/hr. Will cont to monitor.
--- NOTE | 2019-06-23 19:18 | NUR ---
Pt endorsed to night nurse, ANTWON Jeff. Pt in bed displaying no signs of acute distress. Pt IV to L Hand flushed with 10ml NS and found to be patent. IV fluids running NS 50 ml/hr. Gtube feeding running Jevity 1.2 at 65ml/hr.
--- NOTE | 2019-06-23 19:20 | NUR ---
RECEIVED BEDSIDE REPORT FROM AM SHIFT RN RAMANA, FOR PATIENT'S CONTINUITY OF CARE. PATIENT IS AWAKE, ALERT, ORIENTED X 0, NON VERBAL, DOES NOT FOLLOW COMMAND. PATIENT IS ON ROOM AIR, HAS RIGHT HAND 24G INFUSING WITH NS AT 50 ML/HR, HAS LEFT UPPER ABDOMINAL G TUBE RUNNING WITH JEVITY AT 65 ML/HR. PATIENT'S BILATERAL HANDS ARE CONTRACTED, PATIENT'S BODY IS STIFF. PATIENT IS CURRENTLY ON COOLING MEASURES FOR LOW GRADE TEMP. BED ALARM IS ON AND ON LOW POSITION, SIDE RAILS ARE UP, CALL LIGHT WITHIN REACH, PATIENT DOES NOT SHOW ANY SIGNS OF DISTRESS. WILL MONITOR PATIENT THROUGHOUT SHIFT.
[2019-06-23 20:00] VITALS: BP 130/61
--- NOTE | 2019-06-23 20:20 | NUR ---
VITAL SIGNS CHECKED AND CHARTED. ADMINISTERED SCHEDULED MEDICATIONS ORDERED. G-TUBE PLACEMENT CHECKED, ASPIRATED 10 ML OF GASTRIC CONTENTS, ADMINISTERED MEDICATIONS AND PATIENT TOLERATED THEM WELL. WILL CONTINUE TO MONITOR PATIENT.
--- NOTE | 2019-06-23 22:00 | NUR ---
MADE ROUNDS. PATIENT WAS SLEEPING, WITH NO SIGNS OF DISTRESS. REMOVED COOLING MEASURES, WILL RE-CHECK TEMP.
[2019-06-24] VITALS: BP 122/69
--- NOTE | 2019-06-24 | NUR ---
VITAL SIGNS CHECKED AND CHARTED. TEMP 98 - TEMPORAL, 99.1 AXILLARY. APPLIED HYDRAGUARD ORDERED. PERFORMED ANSARI CATH CARE. PATIENT TOLERATED IT WELL. WILL CONTINUE TO MONITOR PATIENT.
[2019-06-24] MEDS: HYDRAGUARD CREAM TP SCH ×2 (00:23→13:13)
--- NOTE | 2019-06-24 02:10 | NUR ---
MADE ROUNDS. PATIENT ASLEEP, WITH NO SIGNS OF DISTRESS. WILL CONTINUE TO MONITOR PATIENT.
--- NOTE | 2019-06-24 03:25 | NUR ---
ASSISTED DIRECTOR NURSERY SCHOOL IN [employer]ANGING [place], APPLIED HYDRAGUARD. REPOSITIONED PATIENT, AND MADE COMFORTABLE. NO SIGNS OF DISTRESS, AND PATIENT TOLERATED ACTIVITY WELL.
[2019-06-24 04:00] VITALS: BP 130/56
--- NOTE | 2019-06-24 05:55 | NUR ---
HUNG NEW JEVITY AT 65 ML/HR. CHECKED BLOOD GLUCOSE - 138. PATIENT IS AWAKE, SHOWING NO SIGNS OF DISTRESS. WILL ENDORSE TO AM SHIFT RN FOR PATIENT'S CONTINUITY OF CARE.
[2019-06-24] MEDS: BLOOD GLUCOSE MONITORING 1 DEV DEV FS SCH ×2 (05:59→11:40)
[2019-06-24 06:41] LABS: ANION GAP 9.5 (8-16); CARBON DIOXIDE 29.3 mmol/L (21-32); CHLORIDE 106 mmol/L (98-107); CREATININE 0.4 mg/dL (0.6-1.3); GLUCOSE 126 mg/dL (74-106); POTASSIUM 3.8 mmol/L (3.5-5.1); SODIUM SERUM 141 mmol/L (136-145); UREA NITROGEN, BLOOD 11 mg/dL (7-18)
[2019-06-24 06:58] LABS: BASOPHILS % (AUTO) 0.5 % (0.0-2.0); EOSINOPHILS # (AUTO) 0.1 K/uL (0-0.4); EOSINOPHILS % (AUTO) 2.5 % (0.0-4.0); HEMATOCRIT 36.5 % (36-48); HEMOGLOBIN 12.2 g/dL (12.0-16.0); LYMPHOCYTES # (AUTO) 1.2 K/uL (2.5-16.5); LYMPHOCYTES % (AUTO) 20.9 % (20.5-51.1); MEAN CORPUSCULAR HEMOGLOBIN 32 pg (27-31); MEAN CORPUSCULAR HGB CONC 34 g/dL (33-37); MEAN CORPUSCULAR VOLUME 95.4 fL (80-94); MONOCYTES # (AUTO) 0.6 K/uL (0.8-1.0); MONOCYTES % (AUTO) 10.5 % (1.7-9.3); NEUTROPHILS # (AUTO) 3.9 K/uL (1.8-7.7); NEUTROPHILS % (AUTO) 65.6 % (42.2-75.2); PLATELET COUNT (AUTO) 172 K/uL (140-450); RED BLOOD CELL COUNT(AUTO) 3.83 MIL/uL (4.20-5.40); RED CELL DISTRIBUTION WIDTH 13.9 % (11.6-13.7); WHITE BLOOD COUNT (AUTO) 5.9 K/uL (4.8-10.8)
--- NOTE | 2019-06-24 07:06 | NUR ---
Received report from pm nurse February. Pt resting in bed, noted to be grunting, RR=20 even & nonlabored, SaO2 100% on O2 @ 4Lpm via n/c & ongoing nebulizer tx. Per pm nurse, pt with episodes of grunting without SOB/respiratory distress. Left wrist IV intact with ongoing 1/2 NS @ 100ml/hr. GT intact with ongoing Glucerna 1.2@ 70ml/hr. HOB elevated @ 30-45�. Call light within reach. Will cont to monitor. Addendum: 06/24/19 at 0735 by Tracee Bullard RN Wrong patient. Pls omit above note.
--- NOTE | 2019-06-24 07:15 | NUR ---
Received report from pm nurse Tomer. Pt resting in bed, responsive to voice & touch, respirations even & nonlabored in room air. GT in place with ongoing Jevity 1.2 @ 65ml/hr. HOB elevated @ 30-45�. Right hand IV intact with ongoing NS @ 50ml/hr. Lindquist cath in place & draining clear light amado urine. Call light within reach.
[2019-06-24 08:01] VITALS: BP 125/59
[2019-06-24] MEDS: DOCUSATE 100 MG/10 ML UDC GT SCH (08:18)
[2019-06-24] MEDS: METOPROLOL 25 MG TAB GT SCH (08:18)
[2019-06-24] MEDS: LACTULOSE 20 GM/30 ML UDC GT SCH (08:18)
[2019-06-24] MEDS: LACTOBACILLUS RHAMNOSUS GG 1 EACH CAP GT SCH (08:18)
[2019-06-24] MEDS: FAMOTIDINE 20 MG TAB GT SCH (08:18)
[2019-06-24] MEDS: CALCIUM POLYCARBOPHIL 625 MG TAB GT SCH (08:19)
[2019-06-24] MEDS: ASCORBIC ACID 500 MG TAB GT SCH (08:19)
[2019-06-24] MEDS ORDERED: LACT10CA GT (08:21)
[2019-06-24] MEDS ORDERED: ROC2I IV (08:21)
--- NOTE | 2019-06-24 09:13 | NUR ---
Beck Operator Note: Per patient's Huber Shyann / , he would like patient to return to [facility] upon discharge.
[2019-06-24] MEDS: MULTIVITAMIN/MINERALS 15 ML UDBTL GT SCH (09:33)
--- NOTE | 2019-06-24 11:15 | NUR ---
Spoke to RN from [facility] & confirmed FLU vac 08/02/18, PNA vac 08/31/18.
[2019-06-24] MEDS: NACL 0.9% 1,000 ML IV SCH (11:23)
[2019-06-24 12:00] VITALS: BP 112/51
--- NOTE | 2019-06-24 13:46 | NUR ---
CALLED [facility] [phone] SPOKE WITH LICO PT CAN GO TO ROOM 50 A . ARRANGED TRANSPORT WITH [facility] , AUTO SERVICE MECHANIC TIME 1500 NOTIFIED RAMANA.
--- NOTE | 2019-06-24 14:30 | NUR ---
Telephone report given to Yelitza KAPOOR from [facility]. Per Yelitza, pt to go to room 50A.
--- NOTE | 2019-06-24 15:15 | NUR ---
Pt discharged at this time via [facility] transport [facility] to [facility]. Pt awake, nonverbal, no signs of distress. Right hand IV 24G saline lock intact & asymptomatic. GT intact & flushed with 30ml water. Lindquist cath in place & draining clear yellow urine. All belongings with film technician upon departure.
== END 2019-06-24 15:15 | DRG 871 ==
LOC: MED 14:09 → MTU 17:37
PROVIDERS: ADMIT Family Medicine; ATTEND Family Medicine
PROC: 0D20XUZ Change Feeding Device in Upper Intestinal Tract, External Approach (ICD-10-PCS; principal; 2019-06-20)
DX: A41.9 Sepsis, unspecified organism (principal); J69.0 Pneumonitis due to inhalation of food and vomit; R53.2 Functional quadriplegia; K94.23 Gastrostomy malfunction; E44.0 Moderate protein-calorie malnutrition; N12 Tubulo-interstitial nephritis, not specified as acute or chronic; Y83.8 Other surgical procedures as the cause of abnormal reaction of the patient, or of later complication, without mention of misadventure at the time of the procedure; I12.9 Hypertensive chronic kidney disease with stage 1 through stage 4 chronic kidney disease, or unspecified chronic kidney disease; N18.9 Chronic kidney disease, unspecified; E11.22 Type 2 diabetes mellitus with diabetic chronic kidney disease; F03.90 Unspecified dementia, unspecified severity, without behavioral disturbance, psychotic disturbance, mood disturbance, and anxiety; Z66 Do not resuscitate; K21.9 Gastro-esophageal reflux disease without esophagitis; K59.00 Constipation, unspecified; L89.151 Pressure ulcer of sacral region, stage 1; L30.9 Dermatitis, unspecified; R31.9 Hematuria, unspecified; D64.9 Anemia, unspecified; E83.39 Other disorders of phosphorus metabolism; I34.0 Nonrheumatic mitral (valve) insufficiency; Z68.26 Body mass index [BMI] 26.0-26.9, adult; Z86.73 Personal history of transient ischemic attack (TIA), and cerebral infarction without residual deficits; Z79.899 Other long term (current) drug therapy
CPT/HCPCS: 36415; 71045; 74241; 76770; 80048; 80053; 81001; 82550; 82553; 82948; 83036; 83605; 83690; 83735; 83880; 84100; 84134; 84436; 84443; 84484; 85025; 85610; 85730; 87040; 87081; 87086; 87186; 87205; 89220; 93005; 96361; 96365; 99285; J0696; J1644; J1815; J2543; J7030; J7060; Q0092; Q9967